=== PATIENT | male | born 1950 | race Caucasian/White ===

== ENCOUNTER → 2017-09-12 | Outpatient (REF) | LOC: ZLAB.WCH 10:32 | DX: Z01.89 Encounter for other specified special examinations (principal) ==

== ENCOUNTER 2017-12-25 13:30 | Emergency (ER) | payer MEDICARE, OTHER ==
[~2017-12-25] VITALS: Ht 190.5 cm; Wt 84.1 kg
[2017-12-25 13:34] VITALS: BP 138/65; TEMP 98.9
[2017-12-25] MEDS ORDERED: LIPITOR 10MG10 MG PO (13:38)
[2017-12-25] MEDS ORDERED: FLOMAX 0.40.4 MG/CAP PO (13:39)
[2017-12-25] MEDS ORDERED: LOPRESSOR 225 MG/TAB PO (13:39)
[2017-12-25] MEDS ORDERED: NORVASC2.5 MG PO (13:39)
[2017-12-25 14:39] LABS: INFLUENZA A NEGATIVE; INFLUENZA B NEGATIVE
[2017-12-25] MEDS ORDERED: DOXYCYCLINE 10100 MG PO (15:38)
[2017-12-25 15:41] VITALS: PULSE 70
== END 2017-12-25 15:42 | disposition home or self-care (01) ==
LOC: COL.ER 13:30
PROVIDERS: Emergency Medicine
DX: J18.9 Pneumonia, unspecified organism (principal); Z95.1 Presence of aortocoronary bypass graft; I10 Essential (primary) hypertension; E78.00 Pure hypercholesterolemia, unspecified

== ENCOUNTER → 2018-05-25 | Outpatient (REF) ==
[~2018-05-25] MED LIST: DOXYCYCLINE 10100 MG PO; FLOMAX 0.40.4 MG/CAP PO; LIPITOR 10MG10 MG PO; LOPRESSOR 225 MG/TAB PO; NORVASC2.5 MG PO
== END ==
LOC: ZLAB.WCH 15:49
DX: Z01.89 Encounter for other specified special examinations (principal)

== ENCOUNTER → 2020-12-31 | Outpatient (CLI) | payer MEDICARE, OTHER | LOC: MHCPAIN 12:27 | DX: M47.817 Spondylosis without myelopathy or radiculopathy, lumbosacral region (principal); M53.3 Sacrococcygeal disorders, not elsewhere classified; G89.29 Other chronic pain; G20 Parkinson's disease | CPT/HCPCS: G0463 ==

== ENCOUNTER → 2021-01-23 | Outpatient (CLI) | payer MEDICARE, OTHER | LOC: MHCPAIN 08:32 | DX: M47.817 Spondylosis without myelopathy or radiculopathy, lumbosacral region (principal); M54.5 Low back pain; M53.3 Sacrococcygeal disorders, not elsewhere classified ==

== ENCOUNTER → 2021-01-28 | Outpatient (CLI) | payer MEDICARE, OTHER | LOC: MHCPAIN 13:43 | DX: M47.817 Spondylosis without myelopathy or radiculopathy, lumbosacral region (principal); M54.5 Low back pain; M53.3 Sacrococcygeal disorders, not elsewhere classified; G89.29 Other chronic pain | CPT/HCPCS: G0463 ==

== ENCOUNTER → 2021-02-13 | Outpatient (CLI) | payer MEDICARE, OTHER | LOC: MHCPAIN 14:15 | DX: M47.817 Spondylosis without myelopathy or radiculopathy, lumbosacral region (principal); M54.5 Low back pain ==

== ENCOUNTER → 2021-03-27 | Outpatient (CLI) | payer MEDICARE, OTHER | LOC: MHCPAIN 08:57 | DX: M54.5 Low back pain (principal); M47.817 Spondylosis without myelopathy or radiculopathy, lumbosacral region; M53.3 Sacrococcygeal disorders, not elsewhere classified | CPT/HCPCS: G0463; J1100; J2250; J3010 ==

== ENCOUNTER → 2021-04-03 | Outpatient (CLI) | payer MEDICARE, OTHER | LOC: MHCPAIN 08:57 | DX: M47.817 Spondylosis without myelopathy or radiculopathy, lumbosacral region (principal); M54.5 Low back pain; M53.3 Sacrococcygeal disorders, not elsewhere classified | CPT/HCPCS: J1100; J2250; J3010 ==

== ENCOUNTER → 2021-04-21 | Outpatient (CLI) | payer MEDICARE, OTHER | LOC: MHCPAIN 09:49 | DX: M47.816 Spondylosis without myelopathy or radiculopathy, lumbar region (principal); M54.5 Low back pain; M53.3 Sacrococcygeal disorders, not elsewhere classified; G89.29 Other chronic pain | CPT/HCPCS: G0463 ==

== ENCOUNTER → 2021-04-24 | Outpatient (CLI) | payer MEDICARE, OTHER | LOC: MHCPAIN 08:30 | DX: M47.818 Spondylosis without myelopathy or radiculopathy, sacral and sacrococcygeal region (principal); M53.3 Sacrococcygeal disorders, not elsewhere classified | CPT/HCPCS: G0260; J1040; Q9967 ==

== ENCOUNTER → 2021-06-16 | Outpatient (CLI) | payer MEDICARE, OTHER | LOC: MHCPAIN 13:00 | DX: M47.816 Spondylosis without myelopathy or radiculopathy, lumbar region (principal); M54.5 Low back pain; M53.3 Sacrococcygeal disorders, not elsewhere classified | CPT/HCPCS: G0463 ==

== ENCOUNTER → 2021-11-10 | Outpatient (CLI) | payer MEDICARE, OTHER | LOC: MHCPAIN 13:21 | DX: M47.817 Spondylosis without myelopathy or radiculopathy, lumbosacral region (principal); M53.3 Sacrococcygeal disorders, not elsewhere classified; M54.16 Radiculopathy, lumbar region | CPT/HCPCS: G0463 ==

== ENCOUNTER → 2022-01-08 | Outpatient (CLI) | payer MEDICARE, OTHER | LOC: MHCPAIN 11-27 11:07 | DX: M47.816 Spondylosis without myelopathy or radiculopathy, lumbar region (principal); M53.3 Sacrococcygeal disorders, not elsewhere classified; M54.16 Radiculopathy, lumbar region | CPT/HCPCS: G0463; J1100; Q9967 ==

== ENCOUNTER → 2022-01-29 | Outpatient (CLI) | payer MEDICARE, OTHER | LOC: MHCPAIN 12:45 | DX: M47.817 Spondylosis without myelopathy or radiculopathy, lumbosacral region (principal); M53.3 Sacrococcygeal disorders, not elsewhere classified | CPT/HCPCS: G0260; J1040; Q9967 ==

== ENCOUNTER → 2022-02-18 | Outpatient (CLI) | payer MEDICARE, OTHER | LOC: MHCPAIN 12:38 | DX: M47.896 Other spondylosis, lumbar region (principal); M53.3 Sacrococcygeal disorders, not elsewhere classified; G89.29 Other chronic pain | CPT/HCPCS: G0463 ==

== ENCOUNTER → 2023-09-21 | Outpatient (CLI) | payer MEDICARE, OTHER | LOC: MHCPAIN 13:42 | DX: M25.512 Pain in left shoulder (principal); M54.50 Low back pain, unspecified; M53.3 Sacrococcygeal disorders, not elsewhere classified; G20.C Parkinsonism, unspecified | CPT/HCPCS: G0463 ==

== ENCOUNTER → 2023-09-29 | Outpatient (CLI) | payer MEDICARE, OTHER | LOC: MHCPAIN 10:26 | DX: M25.512 Pain in left shoulder (principal); M75.52 Bursitis of left shoulder; M75.42 Impingement syndrome of left shoulder | CPT/HCPCS: G0463; J0665; J1040 ==

== ENCOUNTER → 2024-02-24 | Outpatient (CLI) | payer MEDICARE, OTHER ==
[~2024-02-24] MED LIST changes: +Lidocaine PF 2% (20 MG/ML) 5 ML VIAL ONE; +Midazolam 2 MG/2 ML VIAL ONE; +fentaNYL 50 MCG/ML 2 ML VIAL ONE
== END ==
LOC: MHCPAIN 14:04
DX: M47.817 Spondylosis without myelopathy or radiculopathy, lumbosacral region (principal); M54.50 Low back pain, unspecified
CPT/HCPCS: J0665; J2250; J3010

== ENCOUNTER → 2024-03-20 | Outpatient (CLI) | payer MEDICARE, OTHER ==
[~2024-03-20] MED LIST changes: -Lidocaine PF 2% (20 MG/ML) 5 ML VIAL ONE; -Midazolam 2 MG/2 ML VIAL ONE; -fentaNYL 50 MCG/ML 2 ML VIAL ONE
== END ==
LOC: MHCPAIN 10:17
DX: M47.896 Other spondylosis, lumbar region (principal); I25.10 Atherosclerotic heart disease of native coronary artery without angina pectoris; Z95.5 Presence of coronary angioplasty implant and graft; G20.C Parkinsonism, unspecified
CPT/HCPCS: G0463

== ENCOUNTER → 2024-05-18 | Outpatient (CLI) | payer MEDICARE, OTHER | LOC: MHCPAIN 14:05 | DX: M47.817 Spondylosis without myelopathy or radiculopathy, lumbosacral region (principal); M54.50 Low back pain, unspecified ==

== ENCOUNTER → 2024-07-19 | Outpatient (CLI) | payer MEDICARE, OTHER | LOC: MHCPAIN 12:58 | DX: M47.26 Other spondylosis with radiculopathy, lumbar region (principal); M48.061 Spinal stenosis, lumbar region without neurogenic claudication; M54.50 Low back pain, unspecified | CPT/HCPCS: G0463 ==

== ENCOUNTER → 2024-09-11 | Outpatient (CLI) | payer MEDICARE, OTHER | LOC: MHCPAIN 15:03 | DX: M47.816 Spondylosis without myelopathy or radiculopathy, lumbar region (principal); M48.061 Spinal stenosis, lumbar region without neurogenic claudication; M19.012 Primary osteoarthritis, left shoulder; I25.10 Atherosclerotic heart disease of native coronary artery without angina pectoris; Z95.5 Presence of coronary angioplasty implant and graft; G20.A1 Parkinson's disease without dyskinesia, without mention of fluctuations | CPT/HCPCS: G0463 ==

== ENCOUNTER → 2024-09-25 | Outpatient (CLI) | payer MEDICARE, OTHER | LOC: MHCPAIN 10:39 | DX: M43.06 Spondylolysis, lumbar region (principal); M47.816 Spondylosis without myelopathy or radiculopathy, lumbar region; M19.012 Primary osteoarthritis, left shoulder; M53.3 Sacrococcygeal disorders, not elsewhere classified; G20.A1 Parkinson's disease without dyskinesia, without mention of fluctuations | CPT/HCPCS: G0463 ==

== ENCOUNTER → 2024-09-28 | Outpatient (CLI) | payer MEDICARE, OTHER ==
[~2024-09-28] MED LIST changes: +Iohexol 300 - 10 ML VIAL ONE
== END ==
LOC: MHCPAIN 12:55
DX: M46.1 Sacroiliitis, not elsewhere classified (principal); M54.50 Low back pain, unspecified; M47.26 Other spondylosis with radiculopathy, lumbar region
CPT/HCPCS: G0260; J0665; J1010; Q9967